=== PATIENT | female | born 1955 | race African-American/Black ===

== ENCOUNTER 2018-05-19 08:00 | Emergency (ER) | payer MEDICARE ==
[~2018-05-19] VITALS: Ht 157.5 cm; Wt 64.0 kg
[2018-05-19] MEDS ORDERED: TDAP [DIPH/PERTUSSIS/TET] 0.5 ML VIAL IM ONE ×2 (08:30→08:40)
[2018-05-19] MEDS ORDERED: AMOX/CLAVULANATE 875 MG TABLET PO ONE (09:00)
[2018-05-19] MEDS ORDERED: IBUPROFEN 600 MG TABLET PO ONE ×2 (09:00→09:05)
[2018-05-19] MEDS ORDERED: AMOX/CLAVULANATE 875 MG TABLET ONE (09:05)
[2018-05-19] MEDS ORDERED: HYDROCODONE/APAP 5/325MG 1 EACH TABLET ONE (09:29)
[2018-05-19] MEDS ORDERED: HYDROCODONE/APAP 5/325MG 1 EACH TABLET PO ONE (09:30)
[2018-05-19 09:46] VITALS: BP 166/75
--- NOTE | 2018-05-19 09:49 | NUR ---
Patient discharged to home in stable condition. Written and verbal after care instructions given. Patient verbalizes understanding of instruction.
== END 2018-05-19 09:49 | disposition home or self-care (01) ==
LOC: ER 08:02
DX: S51.831A Puncture wound without foreign body of right forearm, initial encounter (principal); I10 Essential (primary) hypertension; Z86.19 Personal history of other infectious and parasitic diseases; Z98.890 Other specified postprocedural states; Z88.5 Allergy status to narcotic agent; Z88.6 Allergy status to analgesic agent; W54.0XXA Bitten by dog, initial encounter; Y93.89 Activity, other specified; Y92.488 Other paved roadways as the place of occurrence of the external cause; Y99.8 Other external cause status
CPT/HCPCS: 73090; 90471; 90715; 99284; A4606; A6402; A6403; Z7610